=== PATIENT | female | born 2000 | race Caucasian/White ===

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

== ENCOUNTER 2021-02-16 13:40 | Outpatient (CLI) | payer OTHER, SELFPAY ==
[2021-02-16 14:24] LABS: TSH (W/Ref FT4) 1.55 uIU/mL (0.36-3.74)
== END 2021-02-16 13:41 | disposition home or self-care (01) ==
LOC: LBO 13:51
PROVIDERS: PCP Pediatrics; Visit Provider Nurse Practitioner Family
DX: F41.9 Anxiety disorder, unspecified (principal)
CPT/HCPCS: 36415; 84443

== ENCOUNTER 2021-05-01 15:56 | Outpatient (REF) | payer OTHER, SELFPAY ==
--- NOTE | 2021-05-01 15:00 | PAPFT_PTH ---
PATIENT: Jessa Polk LOC: [facility] U#:[id number] AGE/SX: 21/F ROOM: RE05/01/[address]: JERMAN Ma : 2000 BED: DIS: 05/01/2021 SPEC #: [id number] RECD: 05/01/21 17:45 STATUS: JOANIE REQ #: [id number] JACQUELINE: 05/01/21 15:[address]: Aida Santana DEPT: [facility] Cytology RECD BY: Lakeshia Adams ENTERED: 05/01/21 17:45 SP TYPE: PAPFT OTHR DR: Jenni Tse Tissues: 1 - CX/ENDOCX FOR PAP SMEARS Procedures: PAP THIN PREP/[facility]VM Screening Comments: [id number]
== END 2021-05-01 15:57 | disposition home or self-care (01) ==
LOC: LBN 15:56
PROVIDERS: PCP Nurse Practitioner Family; Visit Provider Nurse Practitioner Family
DX: Z12.4 Encounter for screening for malignant neoplasm of cervix (principal)
CPT/HCPCS: 88142

== ENCOUNTER 2021-08-10 10:49 | Outpatient (CLI) | payer OTHER, SELFPAY ==
--- NOTE | 2021-08-10 10:15 | DI.RAD_ITS ---
Exam(s) XR SHOULDER RT COMPLETE 2+V EXAM: XR SHOULDER RT COMPLETE 2+V CLINICAL HISTORY: tenderness/? mass at right trapezius R20.0 ANESTHESIA OF SKIN R20.2 TECHNIQUE: COMPARISON: No exams were available for comparison FINDINGS: Five views were obtained. The cartilaginous joint space of the glenohumeral joint appears fairly wel l maintained. No bony or soft tissue abnormality seen involving the shoulder. The requisition raises the possibility of a mass in the right trapezius region. If there is a clinic al suspicion of a mass additional evaluation with CT or MR may be considered. IMPRESSION: RADIATION DOSE DELIVERED: Total DLP
--- NOTE | 2021-08-10 10:15 | DI.RAD_ITS ---
Exam(s) XR CERVICAL SP COMP W FLEX/EXT EXAM: XR CERVICAL SP COMP W FLEX/EXT CLINICAL HISTORY: numbness/tingling right arm; tenderness/?mass trap R20.0 ANESTHESIA OF SKIN TECHNIQUE: COMPARISON: No exams were available for comparison FINDINGS: Seven views were obtained including flexion and extension lateral views. Alignment appears within no rmal limits. Flexion and extension views are unremarkable. Prevertebral soft tissues appear intact. Intervertebral disc spaces are well maintained. No bony abnormality seen. Neural foramina are well maintained on oblique views. IMPRESSION: Negative examination of the cervical spine. RADIATION DOSE DELIVERED: Total DLP
== END 2021-08-10 11:09 ==
PROVIDERS: PCP Nurse Practitioner Family; Visit Provider Pediatrics
DX: R20.0 Anesthesia of skin (principal); R20.2 Paresthesia of skin
CPT/HCPCS: 72052; 73030

== ENCOUNTER 2022-05-23 16:11 | Outpatient (REF) | payer OTHER, SELFPAY ==
--- NOTE | 2022-05-23 15:15 | PAPFT_PTH ---
PATIENT: Jessa Polk LOC: [facility] U#:[id number] AGE/SX: 22/F ROOM: RE05/23/[address]: JERMAN Ma : 2000 BED: DIS: 05/23/2022 SPEC #: [id number] RECD: 05/23/22 18:00 STATUS: JOANIE REQ #: [id number] JACQUELINE: 05/23/22 15:[address]: Aida Santana DEPT: [facility] Cytology RECD BY: Lakeshia Adams ENTERED: 05/23/22 18:00 SP TYPE: PAPFT OTHR DR: Jenni Tse Tissues: 1 - CX/ENDOCX FOR PAP SMEARS Procedures: PAP THIN PREP/UVM Screening Comments: [id number]
== END 2022-05-23 16:12 | disposition home or self-care (01) ==
LOC: LBN 16:11
PROVIDERS: PCP Nurse Practitioner Family; Visit Provider Nurse Practitioner Family
DX: Z12.4 Encounter for screening for malignant neoplasm of cervix (principal)
CPT/HCPCS: 88142

== ENCOUNTER → 2024-05-26 12:01 | Outpatient (CLI) | payer OTHER, SELFPAY ==
--- NOTE | 2024-05-26 | DI.RAD_ITS ---
Exam(s) XR HAND LT COMPLETE EXAM: XR HAND LT COMPLETE CLINICAL HISTORY: SPRAIN OF THUMB,s63.602A. TECHNIQUE: 2D digital imaging was performed of the left hand. Three views were obtained. AP, later al and oblique views were obtained. COMPARISON: CR BONE AGE from 12/09/2012 FINDINGS: BONES: No acute fracture is present. No bony destructive lesion is seen. JOINTS: No dislocation present. SOFT TISSUE: Normal. IMPRESSION: No acute fracture or dislocation is present. DATA REPOSITORY: RADIATION DOSE DELIVERED:
== END ==
PROVIDERS: Visit Provider Emergency Medicine Emergency Medical Services
DX: S63.602A Unspecified sprain of left thumb, initial encounter (principal)
CPT/HCPCS: 73130

== ENCOUNTER 2024-06-04 09:25 | Outpatient (REF) | payer OTHER, SELFPAY ==
[2024-06-07 12:10] LABS: Chlamydia Result Negative (Negative); GC Result Negative (Negative)
== END 2024-06-04 09:26 | disposition home or self-care (01) ==
LOC: LBN 09:25
PROVIDERS: Visit Provider Obstetrics & Gynecology
DX: Z11.3 Encounter for screening for infections with a predominantly sexual mode of transmission (principal)
CPT/HCPCS: 87491; 87591

== ENCOUNTER 2024-09-24 09:21 | Outpatient (REF) | payer OTHER, SELFPAY ==
--- OUTSIDE RECORDS SUMMARY | 2024-09-24 09:22 | XMS_ITS | Encounter Summary ---
Author Organization [facility] [place] [address] Care Team Providers Care Sewer Pipe Layer Helper Name Role Phone Robyn Bonilla MD Primary Care Provider [phone] Reason for Visit * Reason Comments Delayed Puberty Encounter Details Date Type Department Care Team (Latest Contact Info) Description 07/23/2013 3:00 PM EDT Office Visit [place] [id number] Jaquelin Loco APRN [facility] [place] [address] Pubertal delay (Primary Dx); Low weight, pediatric, BMI less than 5th percentile for age Discharge Disposition: Home Social History Tobacco Use Types Packs/Day Years Used Date Smoking Tobacco: Never Smokeless Tobacco: Never Alcohol Use Standard Drinks/Week Comments Not Asked 0 (1 standard drink = 0.6 oz pur e alcohol) Sex and Gender Information Value Date Recorded Sex Assigned at Not on file Gender Identity Not on file Sexual Orientation Not on file documented as of this encounter Last Filed Vital Signs Vital Sign Reading Time Taken Comments Blood Pressure 110/55 07/23/2013 2:41 PM EDT Pulse 62 07/23/2013 2:41 PM EDT Temperature - - Respiratory Rate - - Oxygen Saturation - - Inhaled Oxygen Concentration - - Weight 30.7 kg (67 lb 10.9 oz) 07/23/2013 2:41 P M EDT Height 148.1 cm (4' 10.31) 07/23/2013 2:41 PM E DT Body Mass Index 14 07/23/2013 2:41 PM EDT Body Mass Index Percentile 0.35% 07/23/2013 2:4 1 PM EDT Growth Chart: [facility] [place] (Girls, 2- 20 Years) documented in this encounter Patient Instructions * Patient Instructions* Jaquelin Loco APRN - 07/23/2013 2:58 PM EDT 1. Height today 4 ft 10-1/4 inches, increase of 1-3/4 inches. 2. Weight today 67 lbs, increase of 4 lbs. 3.. Keep push calories. 4. Return visit in six months. documented in this encounter Progress Notes * Jaquelin Loco APRN - 07/23/2013 2:46 PM EDT Reason for Visit: Follow up for pubertal delay and short stature HPI: Jessa Polk is a 13-3/12 ths, year-old, thin, school-aged girl, who is here for follow up ofabove accompanied by her mother. At her initial evaluation, short stature work up was normal and our thinking is that her low body fat is the etiology of her pubertal delay. Bone age was delayed and yielded a final height around 63.5 inches, falling well within her genetic potential. She does not have a distorted image of herself. There is also a family history of delayed puberty and likely that Jessa is following a similar pattern. Over the interim, family has been pushing high calories. They do feel she has gained weight. She isgrowing and has required an increase in clothes size. She is progressing in puberty with increase in breast tissue. Overall, general health is good. Remainder of systems as noted below. Laboratory evaluation: Ref. Range 01/18/2013 15:06 WBC Latest Range: 4.5-13.0 x10(3)/mcL 5.6 RBC Latest Range: 4.10-5.10 x10(6)/mcL 4.67 Hemoglobin Latest Range: 12.0-16.0 gm/dL 13.7 Hematocrit Latest Range: 36.0-46.0 % 38.5 MCV Latest Range: 76.0-98.0 fL 82.4 MCH Latest Range: 25.0-35.0 pg 29.3 MCHC Latest Range: 32.0-36.5 gm/dL 35.6 RDWSD Latest Range: 35.0-46.0 fL 38.9 RDWCV Latest Range: 10.9-14.4 % 13.0 Platelets Latest Range: 145-370 x10(3)/mcL 323 MPV Latest Range: 9.0-12.0 fL 10.2 Neutr Abs (ANC) Latest Range: 1.50-8.00 x10(3)/mcL 2.71 Neutrophils % Latest Range: 37.0-77.0 % 47.9 Immature Gran % Latest Range: 0.00-0.66 % 0.20 Lymphocytes % Latest Range: 20.0-50.0 % 42.3 Monocytes % Latest Range: 2.0-12.0 % 7.6 Eosinophils % Latest Range: 0.0-7.0 % 1.6 Basophils % Latest Range: 0.0-2.0 % 0.4 Yeimi Gran Abs Latest Range: 0.00-0.05 x10(3)/mcL 0.01 Lymphocytes Abs Latest Range: 1.2-5.2 x10(3)/mcL 2.4 Monocyte Abs Latest Range: 0.2-1.0 x10(3)/mcL 0.4 Eosinophils Abs Latest Range: 0.0-0.5 x10(3)/mcL 0.1 Basophils Abs Latest Range: 0.0-0.2 x10(3)/mcL 0.0 Sed Rate Latest Range: 0-20 mm/hr 3 Sodium Latest Range: 135-145 mmol/L 140 Potassium Latest Range: 3.5-5.0 mmol/L 3.8 Chloride Latest Range: 98-107 mmol/L 103 CO2 Latest Range: 22-31 mmol/L 26 Anion Gap Latest Range: 5-15 mmol/L 11 BUN Latest Range: 5-20 mg/dL 13 Creatinine Latest Range: 0.20-0.70 mg/dL 0.39 Estimated GFR Latest Range: >=60 See note Glucose Lvl Latest Range: 60-199 mg/dL 97 Calcium Latest Range: 8.5-10.5 mg/dL 9.0 Total Protein Latest Range: 5.7-8.0 gm/dL 6.9 Albumin Latest Range: 3.3-4.9 gm/dL 4.7 Total Bilirubin Latest Range: <=1.0 mg/dL 0.2 Bili, Direct Latest Range: 0.0-0.3 mg/dL 0.1 Alk Phos Latest Range: 115-610 unit/L 273 AST Latest Range: 5-30 unit/L 23 ALT Latest Range: 0-25 unit/L 19 Beta-Carotene Latest Range: 48-200 mcg/dL 154 IgA Latest Range: 58-358 mg/dL 73 TTG IgA Ab Latest Range: <=3.9 u/ml <4.0 IGF Bind Prot-3 Latest Range: 2.1-6.2 mg/L 3.2 SOMC 1 No range found 167 Bone age December 2012: Reviewed films. Bone age read as bone age 10-11 years, chronological age 12-8/12 ths years, yielding a final height around 63.5 inches, falling within 2 standard deviations ofthe mid parental height. . Past medical history: Reviewed. No other chronic medical conditions. She did have history of recurrent ear infections in child hennessy and s/p myringotomy tubes. Past surgical history: Reviewed. S/P myringotomy tubes, adenoidectomy. Past social history: Lives at home with both parents and 14-year-old brother. In 8 th grade, high honors. Dad is a decker operator at [employer]. Mom is a book keeper. Family history: Reviewed. Dad, 5 ft 10 inches. Mom 5 ft 2 inches. Family History Problem Relation Age of Onset ??? Learning Disorder Brother ??? Myocardial Infarction Maternal Grandfather ??? Myocardial Infarction Paternal Grandfather ??? Thyroid Disease Paternal Grandmother Medications: None. Allergies as of 07/23/2013 - Review Complete 07/23/2013 Allergen Reaction Noted ??? Amoxicillin 06/19/2011 Immunizations: Up-to-date. Review of Systems: General: Overall, good general health. EENT: S/P myringotomy and adenoidectomy in childhood. No current issues. Respiratory: No complaints of respiratory infections. No difficulty breathing. Cardiac: No history of heart murmurs. No complaints of palpitations. Neuro: No history of seizures. No history of headaches, meningitis, or loss of consciousness. Thyroid: Good energy. No cold intolerance. GI: No history of constipation or diarrhea. Food/Fluid: Denies excessive thirst or urination. : No history of frequent urination, urinary tract infections. Muscle/Bone: No complaints of joint or muscle pain. Skin: No rashes. Sleep: No problems falling or staying asleep. Physical Exam: Jessa is a 13-3/12 ths, year-old, pleasant, school-aged girl. 07/23/2013 2:41 PM BP 110/55 Pulse 62 Resp Temp Temp src SpO2 Weight 30.7 kg (67 lb 10.9 oz) Height 148.1 cm (4' 10.31) Head Cir Peak Flow Pain Score 1 Excl. in GC? Age Percentiles Weight 0% Height 7% BMI: 0% Other Vitals BMI: 14.00 kg/m2 BSA: 1.12 m2 plastics nurse Status: Premenarcheal plastics nurse Status Reviewed: 07/23/2013 Normal Abnormal Comments Tone/Appearance Thin Skin X Head/Neck/thyroid X Eyes X ENT X Teeth X Lungs X Heart X Abdomen X Genitalia/breasts Rafael Stage 3 breast development. Rafael Stage 2 pubic hair Musculoskeletal X Active problems: 1. Pubertal delay. 2. Low BMI. 3. Concern for short stature. Assessment: Jessa is progressing in puberty with more breast tissue and now into her pubertal growth spurt. Today's height 148.1 cm, increase of 4.2 cm in six months, now at the 7 th percentile for height. She also had a nice interval weight gain of 4 lbs with weight today 67 lbs. Her short staturework up at the initial visit was normal. Bone age delayed and gives a final height prediction around 63.5 inches, falling within 2 standard deviations of the mid parental height. Will continue to follow until she reaches menarche. Family in agreement with plan. Plan: 1. Continue to push high calorie, low volume foods. 2. Return visit in 6 months. Copy: MD ROBYN Ordaz MD Katalina Martínez [facility] [place] [address] . documented in this encounter Plan of Treatment Not on file documented as of this encounter Visit Diagnoses Diagnosis Pubertal delay- Primary Delay in sexual development and puberty, not elsewhere classified Low weight, pediatric, BMI less than 5th percentile for age Body Mass Index, pediatric, less than 5th percentile for age documented in this encounter Care Teams Sewer Pipe Layer Helper Relationship Specialty Start Date End Date Robyn Bonilla MD [address] [place] [address] PCP - General 06/19/11 04/02/21 documented as of this encounter
--- OUTSIDE RECORDS SUMMARY | 2024-09-24 09:22 | XMS_ITS | Encounter Summary ---
Author Organization [facility] Address [facility] [place] [address] Care Team Providers Care Balancer Scale Name Role Phone Jenni Tse HARSHA Primary Care Provider [phone] Reason for Visit * Reason Comments Allergy Testing Encounter Details Date Type Department Care Team (Late st Contact Info) Description 08/13/2021 9:00 AM EDT [place] [address] Olimpia Mendez PA [facility] [place] [address] Adverse effect of penicillin, initial encounter; Drug-induced skin rash Social History Tobacco Use Types Packs/Day Years [...] Sign Reading Time Taken Comments Blood Pressure 120/87 08/13/2021 11:47 AM EDT Pulse 66 08/13/2021 11:47 AM EDT Temperature - - Respiratory Rate - - Oxygen Saturation 100% 08/13/2021 11:47 AM EDT Inhaled Oxygen Concentration - - Weight 47.4 kg (104 lb 9.6 oz) 08/13/2021 8:58 A M EDT Height - - Body Mass Index - - documented in this encounter Patient Instructions * Patient Instructions* Olimpia Mendez PA - 08/13/2021 9:00 AM EDT You had negative skin testing to penicillin and tolerated a graded oral dose challenge to amoxicillin 500 mg today. You may take amoxicillin/penicillin in the future if needed. I have removed amoxicillin from your allergy list. Delayed reactions may occur to antibiotics. If you develops a rash or other symptoms later today orwhile taking amoxicillin for a longer course, please seek evaluation. documented in this encounter Progress Notes * Olimpia Mendez PA - 08/13/2021 9:00 AM EDT Images from the original note were not included. [facility] Section of Allergy and Clinical Immunology Primary Care Provider: Jenni Tse APRN Patient Age: 21 y.o. Patient : 2000 Historian: Patient Subjective: Chief Complaint Patient presents with ??? 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 She was last seen on 04/17/21. At that visit, she reported that she developed facial hives and her throat felt weird approximately 1 week after she received her first Moderna vaccine in January. She wastreated with epinephrine which did not resolve her symptoms. Since then, she reported developing hives during exams or when anxious/stressed. Dr. Lizeth Meek recommended she receive her 2nd vaccine per routine protocol, as her history was more consistent with intermittent hives, rather than an adverse reaction to her vaccine. She reports that she got her second Moderna COVID-19 vaccine after her last visit on 04/17. She reported a history of a full body rash after taking amoxicillin when she was 3 years old. Past Medical History: Diagnosis Date ??? Low weight, pediatric, BMI less than 5th percentile for age ??? Pubertal delay ??? Short stature No past surgical history on file. Outpatient Medications Marked as Taking for the 08/13/21 encounter (Office Visit) with Olimpia Mendez PA Medication Sig Dispense Refill ??? Sprintec, 28, 0.25-35 mg-mcg Tablet TAKE 1 TABLET BY MOUTH ONCE DAILY Current Facility-Administered Medications for the 08/13/21 encounter (Office Visit) with Olimpia Mendez PA Medication Dose Route Frequency Provider Last Rate Last Admin ??? [COMPLETED] benzylpenicilloyl polylysine (Pre-pen) injection 0.02 mL 0.02 mL Intradermal Once Olimpia Mendez PA 0.02 mL at 08/13/21 0916 ??? [COMPLETED] amoxicillin (Amoxil) capsule 500 mg 500 mg Oral Once Olimpia Mendez PA 500 mg at 08/13/21 1009 No Known Allergies Family History Problem Relation Age of Onset ??? Learning Disorder Brother ??? Myocardial Infarction Maternal Grandfather ??? Myocardial Infarction Paternal Grandfather ??? Thyroid Disease Paternal Grandmother Social History Tobacco Use ??? Smoking status: Never Smoker ??? Smokeless tobacco: Never Used Vaping Use ??? Vaping Use: Never used Substance Use Topics ??? Alcohol use: Not on file ??? Drug use: Not on file Objective: BP 120/87 (BP Location (NBP): Left arm, Patient Position: Sitting) Pulse 66 Wt 47.4 kg (104 lb 9.6 oz) SpO2 100% No flowsheet data found. Wt Readings from Last 3 Encounters: 08/13/21 47.4 kg (104 lb 9.6 oz) 01/26/14 (!) 33.1 kg (73 lb) (<1 %)* 07/23/13 (!) 30.7 kg (67 lb 10.9 oz) (<1 %)* * Growth percentiles are based on CDC (Girls, 2-20 Years) data. Physical Exam Vitals reviewed. Constitutional: Appearance: Normal appearance. HENT: Head: Normocephalic. Nose: Nose normal. Eyes: Conjunctiva/sclera: Conjunctivae normal. Pulmonary: Effort: Pulmonary effort is normal. Skin: General: Skin is warm. Findings: No rash. Neurological: General: No focal deficit present. Mental Status: She is alert. Psychiatric: Mood and Affect: Mood normal. Procedures Performed: Skin testing to penicillin and pre-pen negative. See scanned skin testing sheet. Graded oral dose challenge to amoxicillin 500 m mg given at 1009, no reaction. 450 mg given at 1040, no reaction. Challenge tolerated. Post-challenge counseling completed. 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 Skin testing today was negative to penicillin. She subsequently tolerated a graded oral dose challenge to amoxicillin 500 mg. She may take amoxicillin/penicillin in the future if indicated. Amoxicillin has been removed from her allergy list. Delayed reactions may occur to antibiotics. She was counseled to seek evaluation if she develops a rash or other symptoms later today or while taking amoxicillin for a longer course. All questions were answered, and patient expressed understanding of the plan. Return if symptoms worsen or fail to improve. ROLANDO Jim, PA-C Section of [place]ergy [place] [address] * Ruth Soares RN - 08/13/2021 9:00 AM EDT Patient in clinic for skin testing. Prior to skin test assessment lungs clear to ausculation, HR WNL, no rash, hives noted. Patient denies use of antihistamine in last 7 days. Procedure explained to patient. No signs and symptoms of allergic reaction present. At 09:15 SPT administered. Post 15 minutes observation. Results read by provider. Proceeded to nextdose At 09:40 IDT administered. Post 15 minutes observation. Results read by provider. Post IDT testing. Vss, lungs clear to ausculation, oral pharynex WNL. No signs and symptoms of allergic reaction present. Waiting for provider. Patient in Clinic for Oral Drug Challenge to Amoxicillin 500 mg . Oral Drug challenge procedure reviewed with patient. Patient verbalized understanding. At 10:09 Amoxicillin 50 mg given, post 30 mins observation no report or symptoms of reaction. Proceeded to next dose. At 10:40, Amoxicillin 450 mg given, post 60 mins observation no report or symptoms of reaction. time: 11:45. VSS, patient waiting for provider. Patient ambulated from appointment at baseline, no signs or symptoms of reaction. documented in this encounter Plan of Treatment Not on file documented as of this encounter Procedures Procedure Name Priority Date/Time Associated Diagnosis Comments ALLERGY SCAN 08/13/2021 12:00 AM EDT documented in this encounter Results * SCAN DOC: ALLERGY (08/13/2021 12:00 AM EDT) Unknown MEDIA MGR SCAN EXT O RDR/RSLT documented in this encounter Visit Diagnoses Diagnosis Adverse effect of penicillin, initial encounter Drug-induced skin rash Toxic erythema documented in this encounter Administered Medications Inactive Administered Medications - up to 3 most recent administrations Medication Order MAR Action Action Date Dose Rate Site amoxicillin (Amoxil) capsule 500 mg 500 mg, Oral, ONCE, 1 dose, On Fri08/13/21 at 1030, Routine, Indication for (Active or Suspected): Other (See comment) / supervised challenge Given 08/13/2021 10:09 AM EDT 500 mg benzylpenicilloyl polylysine (Pre-pen) injection 0.02 mL 0.02 mL, Intradermal, ONCE, 1 dose, On Fri08/13/21 at 1030, Pre-pen must be administered by a credentialed provider. A filter needle is required to withdraw dose from ampule. , Routine Given 08/13/2021 9:16 AM EDT 0.02 mLs 10- Arm Upper (Right) documented in this encounter Care Teams Balancer Scale Relationship Specialty Start Date End Date Jenni Tse, NUT CHOPPER [address] [place] [address] PCP - General Pediatrics 04/03/21 documented as of this encounter
--- OUTSIDE RECORDS SUMMARY | 2024-09-24 09:22 | XMS_ITS | Encounter Summary ---
Author Organization [facility] [place] [address] Care Team Providers Care Box Builder Name Role Phone Nato Bonilla MD Primary Care Provider [phone] Reason for Visit * Reason Comments Verrucous Vulgaris Encounter Details Date Type Department Care Team (Late st Contact Info) Description 06/19/2011 4:45 PM EDT Office Visit Dermatology [address] [facility] [address] [place], [place] [address] Buddy Barber MD [address] [place] [address] RD, [place] [address] Verruca vulgaris (Primary Dx) Social History Tobacco Use Types Packs/Day Years Used Date Smoking Tobacco: Never Alcohol Use Standard Drinks/Week Comments Not Asked 0 (1 standard drink = 0.6 oz pur e alcohol) Sex and Gender Information Value Date Recorded Sex Assigned at Not on file Gender Identity Not on file Sexual Orientation Not on file documented as of this encounter Progress Notes * Buddy Babrer MD - 06/19/2011 5:16 PM EDT Problem: Left shinto lesion. Jessa follows up after last being seen in July of 2008. At that time I treated a flat wart on the left shinto and she had good resolution for about a year. Unfortunately then it came back and they have been slowly multiplying in number since then. The patient is here today with her father Kirk. Physical examination today reveals a cluster of about 7 or 8 flat warts in the left shinto area. She has none elsewhere. Examination of the hands, feet, arms, legs and the rest of the face is unremarkable. Assessment & Plan: Flat warts, left shinto. a. After obtaining patient consent, the site were treated with LN2 x2. b. Patient tolerated well. c. RTC in 2-3 weeks for repeat check may cancel if doing well. Cc: Nato Bonilla MD documented in this encounter Plan of Treatment Not on file documented as of this encounter Visit Diagnoses Diagnosis Verruca vulgaris- Primary Viral warts, unspecified documented in this encounter Care Teams Box Builder Relationship Specialty Start Date End Date Nato Bonilla MD [address] [place] [address] PCP - General 06/19/11 04/02/21 documented as of this encounter
--- OUTSIDE RECORDS SUMMARY | 2024-09-24 09:22 | XMS_ITS | Encounter Summary ---
Author Organization [facility] [place] [address] Care Team Providers Care Vehicle Operator Name Role Phone Nato Bonilla MD Primary Care Provider Encounter Details Date Type Department Care Team (Late st Contact Info) Description 12/09/2012 Orders Only [place] [address] Jaquelin Loco APRN [facility] DR PEDIATRIC [place] [address] Social History Tobacco Use Types Packs/Day Years Used Date Smoking Tobacco: Never Alcohol Use Standard Drinks/Week Comments Not Asked 0 (1 standard drink = 0.6 oz pur e alcohol) Sex and Gender Information Value Date Recorded Sex Assigned at Not on file Gender Identity Not on file Sexual Orientation Not on file documented as of this encounter Plan of Treatment Not on file documented as of this encounter Procedures Procedure Name Priority Date/Time Associated Diagnosis Comments FILM LIBRARY STORAGE ONLY DX HAND Routine 12/09/2012 5:02 PM EST documented in this encounter Results * Film Library- Storage only DX Hand (12/09/2012 5:02 PM EST) 12/09/2012 5:02 PM EST Narrative [facility] - 06/22/2014 11:03 PM EDT This is a non-reportable exam. Procedure Note Jake Pedroza - 06/22/2014 This is a non-reportable exam. Jaquelin Loco APRN [facility] FILM LIBRARY ORD ERABLES [facility] [address] [facility] [place] [address] documented in this encounter Visit Diagnoses Not on filedocumented in this encounter Care Teams Vehicle Operator Relationship Specialty Start Date End Date Nato Bonilla MD [address] [place] [address] PCP - General 06/19/11 04/02/21 documented as of this encounter
--- OUTSIDE RECORDS SUMMARY | 2024-09-24 09:22 | XMS_ITS | Encounter Summary ---
Author Organization [facility] Address [facility] [place] [address] Care Team Providers Care Plant Electrical Engineer Name Role Phone Jenni Tse WELLNESS NURSE Primary Care Provider [phone] Reason for Visit * Reason Comments Establish Care * Consultation (Urgent) - Closed Specialty Diagnoses / Procedures Referred By Contac t Referred To Contact Allergy Diagnoses Other allergy, initial encounter ALLERGIC REACTION TO COVID-19 VACCINE Jenni Tse, WELLNESS NURSE [address] [place] [address] [place] [address] [facility] [address] [place] [id number] Referral ID Status Reason Start Date Expiration Date V isits Requested Visits Authorized [id number] Closed Consult, Test & Treat Connection [facility] PCP Updated and/or Approved 04/03/2021 04/03/2022 6 6 Encounter Details Date Type Department Care Team (Late st Contact Info) Description 04/17/2021 1:00 PM EDT [place] [phone] Maria G Preciado MD [facility] [place] [address] Urticaria; Adverse effect of penicillin, initial encounter; Drug-induced [...] Sign Reading Time Taken Comments Blood Pressure 136/87 04/17/2021 1:16 PM EDT Pulse 89 04/17/2021 1:16 PM EDT Temperature - - Respiratory Rate - - Oxygen Saturation 99% 04/17/2021 1:16 PM EDT Inhaled Oxygen Concentration - - Weight - - Height - - Body Mass Index - - documented in this encounter Patient Instructions * Patient Instructions* Maria G Preciado MD - 04/17/2021 1:00 PM EDT I have evaluated Jessa Polk and she can receive the 2nd Moderna COVID vaccine per routine protocol. Stop cetirizine 7 days prior to skin testing documented in this encounter Progress Notes * Maria G Preciado MD - 04/17/2021 1:00 PM EDT Images from the original note were not included. [facility] Section of Allergy and Clinical Immunology Date of Service: 04/17/2021 Primary Care Provider: Jenni Tse APRN Patient Age: 21 y.o. 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 She reports that on January 10, 2021, she had her first Moderna injection. She had no symptoms except sore arm after injection. About 1 week later, she developed hives on her face. She felt like her throat felt weird so she went to the ED in [place]. She was given epinephrine, but her symptoms did not resolve. She recalled that she stayed in the ED for many hours. Since then, she has noticed that she breaks out during exams or when she may feel anxious or stressed. When she was 3 years old, she developed a full body rash after taking amoxicillin. Past Medical History: Diagnosis Date ??? Low weight, pediatric, BMI less than 5th percentile for age ??? Pubertal delay ??? Short stature Outpatient Medications Marked as Taking for the 04/17/21 encounter (Office Visit) with Maria G Preciado MD Medication Sig Dispense Refill ??? Sprintec, 28, 0.25-35 mg-mcg Tablet TAKE 1 TABLET BY MOUTH ONCE DAILY Allergies Allergen Reactions ??? Amoxicillin Family History Problem Relation Age of Onset ??? Learning Disorder Brother ??? Myocardial Infarction Maternal Grandfather ??? Myocardial Infarction Paternal Grandfather ??? Thyroid Disease Paternal Grandmother Social History Tobacco Use ??? Smoking status: Never Smoker ??? Smokeless tobacco: Never Used Substance Use Topics ??? Alcohol use: Not on file ??? Drug use: Not on file She is working as a rehabilitation specialist Status: Single. Review of Systems: 10 point review of systems reviewed and negative except as above. Environmental History: Pets in the home: dogs (1). Objective: BP 136/87 Pulse 89 SpO2 99% No flowsheet data found. Wt Readings from Last 3 Encounters: 01/26/14 (!) 33.1 kg (73 lb) (<1 %)* 07/23/13 (!) 30.7 kg (67 lb 10.9 oz) (<1 %)* 01/18/13 (!) 28.6 kg (63 lb) (<1 %)* * Growth percentiles are based on [facility] (Girls, 2-20 Years) data. Gen: awake, alert, no acute distress Head: normocephalic, atraumatic EYES: Conjunctiva not injected or icteric. No discharge. No eyelid edema. ENT: Tympanic membranes clear, no lesions, erythema, or drainage. Normal external ear canals. Nasalpassages show normal mucosa, edematous turbinates bilaterally, no lesions. OP mucosa well hydrated,clear without erythema. No lesions or exudates. No visible OP edema. NECK: supple, symmetric, no masses, trachea midline LYMPH: no submandibular, cervical, or supraclavicular LAD CVS: RRR LUNGS: CTAB, no wheezing or crackles breathing unlabored ABD: non-distended, bowel sounds present SKIN: no rashes, normal color, no mottling EXTREMITIES: warm and well-perfused, normal bulk, symmetric ROM. NEURO: EOMI, no dysarthria PSYCH: normal grooming, appropriate mood and affect, normal volume/quantity/tone of speech, normal thought process and content Review of Medical Records: I reviewed [facility] records. I do not have ED records carline. Assessment and Plan: Jessa Polk is a 21 y.o. female student is seen for a question of delayed reaction to Moderna vaccine. She has since figured out that she has intermittent hives. She had developed hives about 1 week after her COVID-19 vaccine. I do not believe it is related. She may receive her 2nd Moderna vaccine per routine protocol. For her remote amoxicillin allergy labeled at age 3, I recommend she return for penicillin evaluation. Stop cetirizine 7 days prior to skin testing. Risks and benefits of skin testing were discussed in detail with the patient. She requested skin testing to the allergens as planned. Consent was obtained today. All questions were answered, and patient expressed understanding of the plan. Thank you for the opportunity to participate in the care of your patient. Ongoing follow-up with the patient's primary care physician is recommended and encouraged. If I can provide any further assistance, please do not hesitate to contact me. Next visit (studies planned): penicillin skin testing Maria G Meek MD [employer], [place]ergy [place] [address] [email or web address] documented in this encounter Plan of Treatment Not on file documented as of this encounter Visit Diagnoses Diagnosis Urticaria Urticaria, unspecified Adverse effect of penicillin, initial encounter Drug-induced skin rash Toxic erythema documented in this encounter Care Teams Plant Electrical Engineer Relationship Specialty Start Date End Date Jenni Tse APRN [address] [facility] [place] [address] PCP - General Pediatrics 04/03/21 documented as of this encounter
--- OUTSIDE RECORDS SUMMARY | 2024-09-24 09:22 | XMS_ITS | Encounter Summary ---
Author Organization [facility] [place] [address] Care Team Providers Care Federal Aid Coordinator Name Role Phone Robyn Baires MD Primary Care Provider [phone] Reason for Visit * Reason Comments Delayed Puberty Encounter Details Date Type Department Care Team (Latest Contact Info) Description 01/26/2014 4:30 PM EDT Office Visit [place] [phone] Jaquelin Loco APRN [facility] [place] [address] Pubertal delay (Primary Dx); Low weight, pediatric, [...] Sign Reading Time Taken Comments Blood Pressure 118/61 01/26/2014 4:27 PM EDT Pulse 62 01/26/2014 4:27 PM EDT Temperature - - Respiratory Rate - - Oxygen Saturation - - Inhaled Oxygen Concentration - - Weight 33.1 kg (73 lb) 01/26/2014 4:27 PM EDT Height 151.6 cm (4' 11.69) 01/26/2014 4:27 PM E DT Body Mass Index 14.41 01/26/2014 4:27 PM EDT Body Mass Index Percentile 0.54% 01/26/2014 4:2 7 PM EDT Growth Chart: CDC (Girls, 2- 20 Years) documented in this encounter Patient Instructions * Patient Instructions* Jaquelin Loco APRN - 01/26/2014 4:34 PM EDT 1. Height today 4 ft 11-1/2 inches, 11 th percentile. 2. Weight today 73 lbs, increase of 6 lbs, 1 st percentile. 3. Discharge from endocrine clinic. Return if no menses by age 16-years. documented in this encounter Progress Notes * Jaquelin Loco APRN - 01/26/2014 4:27 PM EDT Reason for Visit: Follow up for pubertal delay and short stature HPI: Jessa Polk is a 13-9/12 ths, year-old, thin, school-aged girl, who is [...] following a similar pattern. Over the interim, Jessa is more conscious about eating more high calorie food. She is gaining weight. She is growing and has required an increase in clothes size. She is progressing in puberty with increase in breast tissue. No menses yet. Overall, general health is good. Remainder of [...] history of recurrent ear infections in child [place] and s/p myringotomy tubes. Past surgical history: Reviewed. S/P myringotomy tubes, adenoidectomy. Past social history: Lives at home with both parents and 14-year-old brother. In 8 th grade, high honors. Dad is a consultant rn at [employer]. Mom is a book keeper. Family history: Reviewed. Dad, 5 ft 10 inches. Mom 5 ft 2 inches. Family History Problem Relation Age of Onset ??? Learning Disorder Brother ??? Myocardial Infarction Maternal Grandfather ??? Myocardial Infarction Paternal Grandfather ??? Thyroid Disease Paternal Grandmother Medications: None. Allergies as of 01/26/2014 - Review Complete 07/23/2013 Allergen Reaction Noted [...] staying asleep. Physical Exam: Jessa is a 13-9/12 ths, year-old, pleasant, school-aged girl. 01/26/2014 4:27 PM BP 118/61 Pulse 62 Resp Temp Temp src SpO2 Weight 33.113 kg (73 lb) Height 151.6 cm (4' 11.68) Head Cir Peak Flow Pain Score 0 - No pain Excl. in GC? Age Percentiles Weight 1% Height 11% BMI: 1% Other Vitals BMI: 14.41 kg/m2 BSA: 1.18 m2 conservation science teacher Status: Premenarcheal conservation science teacher Status Reviewed: 07/23/2013 Normal Abnormal Comments Tone/Appearance Thin Skin X Head/Neck/thyroid X Eyes X ENT X Teeth X Lungs X Heart X Abdomen X Genitalia/breasts Rafael Stage 3 breast development, more than prior visit. Musculoskeletal X Active problems: 1. Pubertal delay. 2. Low BMI. 3. Concern for short stature. Assessment: Jessa is progressing in puberty with more breast tissue and now into her pubertal growth spurt. Today's height 151.6 cm, increase of 3.5 cm in six months, now at the 11 th percentile for height. She also had a nice interval weight gain of 6 lbs with weight today 73 lbs, 1 st percentile.Her short stature work up at the initial visit was normal. Bone age delayed and gives a final height prediction around 63.5 inches, falling within 2 standard deviations of the mid parental height. Since she is having normal, interval growth velocity and progression in puberty, will discharge back to the PCP with the understanding that she will return if she does not reach menarche by age 16-years. Plan: 1. Continue to push high calorie, low volume foods. Copy: ROBYN BAIRES MD [address] [facility] [place] [address] . documented in this encounter Plan of Treatment Not on file documented as of this encounter Visit Diagnoses Diagnosis Pubertal delay- Primary Delay in sexual development and puberty, not elsewhere classified Low weight, pediatric, BMI less than 5th percentile for age Body Mass Index, pediatric, less than 5th percentile for age documented in this encounter Care Teams Federal Aid Coordinator Relationship Specialty Start Date End Date Robyn Baires MD [address] [place] [address] PCP - General 06/19/11 04/02/21 documented as of this encounter
--- OUTSIDE RECORDS SUMMARY | 2024-09-24 09:22 | XMS_ITS | Clinical Summary ---
Author Organization [facility] Address [facility] [place] [address] Care Team Providers Care Court Administrator Name Role Phone DedrickJenni Kimberly MCLEOD Primary Care Provider [phone] Allergies No known active allergies Medications Medication Sig Dispensed Refills Start Date End Date Status Sprintec, 28, 0.25-35 mg-mcg Tablet TAKE 1 TABLET BY MOUTH ONCE DAILY 02/06/2021 Active Active Problems Problem Noted Date Diagnosed Date Pubertal delay 01/18/2013 Low weight, pediatric, BMI less than 5th percent ile for age 0301/18/2013 Short stature 01/18/2013 Family History Medical History Relation Comments Learning Disorder Brother 2 Myocardial Infarction Maternal Grandfather Myocardial Infarction Paternal Grandfather Thyroid Disease Paternal Grandmother Relation Status Comments Brother 1 Alive Brother 2 Father Alive Maternal Grandfather Alive Maternal Grandmother Alive Mother Alive Paternal Grandfather Alive Paternal Grandmother Alive Social History Tobacco Use Types Packs/Day Years Used Date Smoking Tobacco: Never Smokeless Tobacco: Never Alcohol Use Standard Drinks/Week Comments Not Asked 0 (1 standard drink = 0.6 oz pur e alcohol) Sex and Gender Information Value Date Recorded Sex Assigned at Not on file Gender Identity Not on file Sexual Orientation Not on file Last Filed Vital Signs Vital Sign Reading Time Taken Comments Blood Pressure 120/87 08/13/2021 11:47 AM EDT Pulse 66 08/13/2021 11:47 AM EDT Temperature - - Respiratory Rate - - Oxygen Saturation 100% 08/13/2021 11:47 AM EDT Inhaled Oxygen Concentration - - Weight 47.4 kg (104 lb 9.6 oz) 08/13/2021 8:58 A M EDT Height 151.6 cm (4' 11.69) 01/26/2014 4:27 PM E DT Body Mass Index - - Plan of Treatment Health Maintenance Due Date Last Done Comments Chlamydia Screening 2015 HPV vaccine (1 - 3-dose series) 2015 HIV screen 2018 Hepatitis C Screening 2018 Hepatitis B vaccine (0-59 yrs) (1) 2019 Tetanus/Diphtheria/Pertussis Vaccines (1 - Tdap) 04/12 PAP Smear 2021 Covid-19 Vaccine (1 - 2023- season) 2024 Influenza (Flu) vaccine (1 o f 1 - Influenza standard series) 07/04/[address] Relationship Specialty Start Date End Date Jenni Tse APRN [address] [place] [address] PCP - General Pediatrics 04/03/21
--- OUTSIDE RECORDS SUMMARY | 2024-09-24 09:22 | XMS_ITS | Encounter Summary ---
Author Organization [facility] [place] [address] Care Team Providers Care Sheet Taker Name Role Phone Nato Bonilla MD Primary Care Provider [phone] Reason for Visit * Reason Comments Delayed Puberty Encounter Details Date Type Department Care Team (Latest Contact Info) Description 01/18/2013 2:00 PM EDT Office Visit [place] [id number] Jaquelin Loco APRN [facility] [place] [address] Short stature (Primary Dx); Poor weight gain (0-17); Pubertal delay; Anesthesia Discharge Disposition: Home Social History Tobacco Use [...] Sign Reading Time Taken Comments Blood Pressure 123/67 01/18/2013 1:35 PM EDT Pulse 74 01/18/2013 1:35 PM EDT Temperature - - Respiratory Rate - - Oxygen Saturation - - Inhaled Oxygen Concentration - - Weight 28.6 kg (63 lb) 01/18/2013 1:35 PM EDT Height 143.9 cm (4' 8.65) 01/18/2013 1:35 PM ED T Body Mass Index 13.8 01/18/2013 1:35 PM EDT Body Mass Index Percentile 0.37% 01/18/2013 1:3 5 PM EDT Growth Chart: CDC (Girls, 2- 20 Years) documented in this encounter Patient Instructions * Patient Instructions* Jaquelin Loco APRN - 01/18/2013 2:08 PM EDT 1. Height today 4 ft 8-3/4 inches. 2. Weight today 63 lbs. 3. Push high calorie foods, ie nuts, raisins, craisins, dried fruit, trail mix. See calorie boosterhand out. 4. Switch to whole milk. 5. Eat at least three meals and three snacks daily. 6. Labs today. I will call you with those results by the end of the week. 7. Return visit in 6 months for growth velocity and weight check. documented in this encounter Progress Notes * Jaquelin Loco APRN - 01/25/2013 9:24 AM EDTQuick Note: Normal labs. Message left on home answering machine. * Jaquelin Loco APRN - 01/18/2013 1:42 PM EDT Reason for Visit: Initial consult for pubertal delay and short stature HPI: Jessa Polk is a 12-9/12 ths, year-old, previously healthy, school-aged girl, who is being seen at the request of Dr. Haider Aguirre, for further evaluation of above. Accompanied by dad whoprovides the past medical history. Family concerned about short stature and delayed puberty. Want to make sure there is no underlying etiology causing her small size. She eats a good amount of food, tends to make very healthy dietary choices. She is very active. Overall, general health is good. There is no family history of celiac disease. Paternal grandmother has thyroid disease. There is a 14-y/o brother who followed a similar growth pattern and who is now just entering puberty. There is no family history of short stature. Dadis 5 ft 10 inches. Mom is 5 ft 2 inches. She did have a bone age done through PCP office which was delayed. PCP growth charts show that she has been consistently tracking below but parallel to the normal curve for weight from age 11-1/2 years to present. Height was at the 10 th percentile at age 11-1/2 years, seems to have trailed off and recently between the 3 rd and 10 th percentiles. I do not have any earlier charts. Remainder of systems review as noted below. Laboratory evaluation through PCP: Will obtain today. Bone age December 2012: Reviewed films. Bone age read as bone age 10-11 years, chronological age 12-8/12 ths years. Past medical history: Reviewed. No other chronic medical conditions. She did have history of recurrent ear infections in child hennessy and s/p myringotomy tubes. Past surgical history: Reviewed. S/P myringotomy tubes, adenoidectomy. Past social history: Lives at home with both parents and 14-year-old brother. In 7 th grade, high honors. Dad is a apprentice lineman third step at [employer]. Mom is a book keeper. Family history: Reviewed. Dad, 5 ft 10 inches. Mom 5 ft 2 inches. Family History Problem Relation Age of Onset ??? Learning Disorder Brother ??? Myocardial Infarction Maternal Grandfather ??? Myocardial Infarction Paternal Grandfather ??? Thyroid Disease Paternal Grandmother Medications: None. Allergies as of 01/18/2013 - Review Complete 01/18/2013 Allergen Reaction Noted ??? Amoxicillin 06/19/2011 Immunizations: [...] staying asleep. Physical Exam: Jessa is a 12-9/12 ths, year-old, pleasant, school-aged girl. 01/18/2013 1:35 PM BP 123/67 Pulse 74 Resp Temp Temp src SpO2 Weight 28.577 kg (63 lb) Height 143.9 cm (4' 8.65) Head Cir Peak Flow Pain Score 0 - No pain Excl. in GC? Age Percentiles Weight 0% Height 4% BMI: 0% Other Vitals BMI: 13.80 kg/m2 BSA: 1.07 m2 scratcher Status: Premenarcheal scratcher Status Reviewed: Never reviewed Normal Abnormal Comments Tone/Appearance Very thin, appears younger than stated age. Skin X Head/Neck/thyroid X Eyes X ENT X Teeth X Lungs X Heart X Abdomen X Genitalia/breasts Early Rafael Stage 3 breast development. No pubic hair Musculoskeletal X Active problems: 1. Pubertal delay. 2. Low BMI. 3. Concern for short stature. Assessment: Jessa most definitely has pubertal delay as does her 14-y/o brother who has just started puberty. He also had a similar build and growth pattern as Jessa. If I use today's height of 143.9cm and recent bone age of 10-11 years, then Jessa's final height is predicted to be around 63 inches. This falls within 2 SD's of the mid parental of 63.5 inches. I did caution the family that the bon e age is not an exact measurement and assumes a normal growth velocity. We did discuss the need foradequate weight gain to ensure normal growth and a normal pubertal spurt. We discussed ways to add calories and patient hand out also given. She is very thin with BMI of only 13. She does not appear to have a distorted image of herself and would welcome gaining an additional 10 lbs. She has not hadany labs done to date, and will go ahead and obtain screening evaluation as noted below to rule outunderlying endocrinopathy that could account for her small size. Family in agreement with plan. It will be important to see how Jessa grows and gains weight over this next interval. Plan: 1. Push high calorie, low volume foods, ie nuts, raisins, craisins, dried fruit, trail mix. See calorie booster hand out. 2. Switch to whole milk. 3. Eat at least three meals and three snacks daily. 4. Obtain TSH, IGF-1, IGFBP-3, CBC, CMP, TTG, IgA, ESR, and carotene today. 5. Return visit in 6 months for growth velocity and weight check. Patient seen and examined in collaboration with Dr. Braxton Wei Copy: MD Chad Ordaz, [place] [id number] . documented in this encounter Plan of Treatment Not on file documented as of this encounter Procedures Procedure Name Priority Date/Time Associated Diagnosis Comments INSULIN LIKE GF-1 Routine 01/18/2013 3:0 6 PM EDT Short stature Poor weight gain (0-17) DIFFERENTIAL, AUTOMATED Routine 01/18/2013 3:06 PM EDT IGF BINDING PROTEIN-3 Routine 01/18/2013 3:06 PM EDT Short stature Poor weight gain (0-17) TISSUE TRANSGLUTAMINASE, IGA Routine 01/18/2013 3:06 PM EDT Short stature Poor weight gain (0-17) CAROTENE Routine 01/18/2013 3:06 PM EDT Poor weight gain (0-17) SEDIMENTATION RATE Routine 01/18/2013 3: 06 PM EDT Short stature Poor weight gain (0-17) CBC (WITH DIFF) Routine 01/18/2013 3:06 PM EDT Short stature Poor weight gain (0-17) IGA Routine 01/18/2013 3:06 PM EDT Short stature Poor weight gain (0-17) COMPREHENSIVE METABOLIC PANEL Routine 01/18/2013 3:06 PM EDT Short stature Poor weight gain (0-17) documented in this encounter Results * Differential, Automated (01/18/2013 3:06 PM EDT) Neutrophil % 47.9 37.0 - 77.0 % [facility] Neutrophil Absolute 2.71 1.50 - 8.00 x10(3)/mcL [facility] Lymph % 42.3 20.0 - 50.0 % [facility] Lymphocytes Abs 2.4 1.2 - 5.2 x10(3)/mcL [facility] Monocyte % 7.6 2.0 - 12.0 % [facility] Monocyte Abs 0.4 0.2 - 1.0 x10(3)/mcL [facility] Eos % 1.6 0.0 - 7.0 % [facility] Eosinophils Abs 0.1 0.0 - 0.5 x10(3)/mcL [facility] Basophil % 0.4 0.0 - 2.0 % [facility] Baso Absolute 0.0 0.0 - 0.2 x10(3)/mcL [facility] Immature Gran % 0.20 0.00 - 0.66 % [facility] Comment: Immature granulocytes(IG's)percentage and absolute count will include metamyelocytes, myelocytes, and promyelocytes. Blood smears from CBCs yielding IG's will be scanned manually for concordance. If this scan disagrees with the automated IG or if promyelocytes are noted, a manual differential will be performed. Immature Gran Absolute 0.01 0.00 - 0.05 x10(3)/mcL [facility] Blood specimen (specimen) 01/18/2013 3:06 PM EDT 01/18/2013 3:12 PM EDT Braxton Wei MD HEMATOLOGY ORDERABLE S [facility] * Carotene (01/18/2013 3:06 PM EDT) Beta-Carotene 154 48 - 200 mcg/dL [facility] Comment: Test Performed by: [address] [address] [employer]aceutical Sales: Jose Thomas III, M.D. Blood specimen (specimen) 01/18/2013 3:06 PM EDT 01/18/2013 4:15 PM EDT Narrative Resulting Agency Comment Spec In Lab Braxton Wei MD LAB SEND OUT ORDERAB LES [facility] * Somatomedin C (01/18/2013 3:06 PM EDT) SOMC 1 167 ng/mL [facility] Comment: Age ?Term Range ng/mL ? Range ng/mL ?15 to 109 ?21 to 93 2m ?15 to 109 ?23 to 163 4m ?7 to 124 ? 23 to 171 6m ?7 to 93 ?15 to 132 12m ?15 to 101 ?15 to 179 FEMALE: Age ? Range ng/mL 1 to 2y ?56 to 144 Age ?Rafael ? Range ng/mL 3y ? 1 ?26 to 162 4y ? 1 ?32 to 179 5y ? 1 ?39 to 198 6y ? 1 ?47 to 217 7y ? 1 ?55 to 238 8y ? 1 ?64 to 259 8y ? 2 ?89 to 369 9y ? 1 ?74 to 282 9y ? 2 ?96 to 399 9y ? 3 ?192 to 568 10y ?1 ?85 to 306 10y ?2 ?104 to 431 10y ?3 ?192 to 568 10y ?4&5 ?279 to 664 11y ?1 ?97 to 332 11y ?2 ?112 to 466 11y ?3 ?192 to 568 11y ?4&5 ?268 to 646 12y ?1 ?110 to 358 12y ?2 ?121 to 504 12y ?3 ?192 to 568 12y ?4&5 ?248 to 612 13y ?2 ?131 to 545 13y ?3 ?192 to 568 13y ?4&5 ?229 to 579 14y ?2 ?136 to 566 14y ?3 ?192 to 568 14y ?4&5 ?211 to 547 15y ?3 ?192 to 568 15y ?4&5 ?194 to 516 16y ?4&5 ?177 to 487 17y ?4&5 ?162 to 458 18y ?4&5 ?147 to 430 Adult Females: ?? Age ? Range ng/mL 19 to 20y ?217 to 475 21 to 30y ? 87 to 368 31 to 40y ?106 to 368 41 to 50y ?118 to 298 51 to 60y ? 53 to 287 61 to 70y ? 75 to 263 71 to 80y ? 54 to 205 MALE: Age ? Range ng/mL 1 to 2y ?30 to 122 Age ? Rafael ?Range ng/mL 3y ?1 ? 20 to 141 4y ?1 ? 25 to 157 5y ?1 ? 30 to 174 6y ?1 ? 37 to 192 7y ?1 ? 44 to 211 8y ?1 ? 52 to 231 8y ?2&3 ? 39 to 264 9y ?1 ? 61 to 252 9y ?2&3 ? 52 to 304 10y ? 1 ? 71 to 275 10y ? 2&3 ? 67 to 347 11y ? 1 ? 82 to 299 11y ? 2&3 ? 86 to 393 11y ? 4&5 ? 277 to 673 12y ? 1 ? 93 to 324 12y ? 2&3 ? 106 to 443 12y ? 4&5 ? 265 to 652 13y ? 1 ? 106 to 350 13y ? 2&3 ? 130 to 497 13y ? 4&5 ? 241 to 612 14y ? 1 ? 120 to 377 14y ? 2&3 ? 156 to 554 14y ? 4&5 ? 220 to 574 15y ? 1 ? 127 to 391 15y ? 2&3 ? 185 to 616 15y ? 4&5 ? 199 to 537 16y ? 2&3 ? 201 to 648 16y ? 4&5 ? 180 to 501 17y ? 4&5 ? 161 to 467 18y ? 4&5 ? 144 to 434 Adult Males: ?? Age ? Range ng/mL 19 to 20y ?281 to 510 21 to 30y ?155 to 432 31 to 40y ?132 to 333 41 to 50y ?121 to 237 51 to 60y ? 68 to 245 61 to 70y ? 60 to 220 71 to 80y ? 36 to 215 Test performed by [facility] [address] [place] [address], ??[place] [id number] Blood specimen (specimen) 01/18/2013 3:06 PM EDT 01/18/2013 4:25 PM EDT Narrative Resulting Agency Comment Spec In Lab Braxton Wei MD LAB SEND OUT ORDERAB LES Performing Organization Address City/[facility]/ZIP Co de Phone Number [facility] * IGF Binding Protein-3 (01/18/2013 3:06 PM EDT) Pathologist [facility] Insulin Like Growth Factor Binding Protein-3 3.2 2.1 - 6.2 mg/L [facility] Comment: Test performed by [facility] [address] [place] [address], ??[place] [id number] Blood specimen (specimen) 01/18/2013 3:06 PM EDT 01/18/2013 4:25 PM EDT Narrative Resulting Agency Comment Spec In Lab Braxton Wei MD LAB SEND OUT ORDERAB LES Performing Organization Address [facility] Co de Phone Number [facility] * Tissue transglutaminase, IgA (01/18/2013 3:06 PM EDT) TTG IgA Ab <4.0 <=3.9 u/ml [facility] Comment: Result Interpretation: Negative: ?<4 U/mL Weak Positive: ??4-10 U/mL Positive: ?>10 U/mL Blood specimen (specimen) 01/18/2013 3:06 PM EDT 01/19/2013 8:14 AM EDT Narrative Resulting Agency Comment Spec In Lab Braxton Wei MD IMMUNOLOGY ORDERABLE S [facility] * IgA (01/18/2013 3:06 PM EDT) IgA 73 58 - 358 mg/dL [facility] Blood specimen (specimen) 01/18/2013 3:06 PM EDT 01/18/2013 3:12 PM EDT Narrative Resulting Agency Comment Spec In Lab Braxton Wei MD CHEMISTRY ORDERABLES Performing Organization Address [facility]/ZIP Co de Phone Number [facility] * Sedimentation rate (01/18/2013 3:06 PM EDT) Sedimentation Rate Automated 3 0 - 20 mm/hr [facility] Blood specimen (specimen) 01/18/2013 3:06 PM EDT 01/18/2013 3:12 PM EDT Narrative Resulting Agency Comment Spec In Lab Braxton Wei MD HEMATOLOGY ORDERABLE S [facility] * CBC (with Diff) (01/18/2013 3:06 PM EDT) White Blood Cell 5.6 4.5 - 13.0 x10(3)/mcL [facility] Red Blood Cell 4.67 4.10 - 5.10 x10(6)/mcL [facility] Hemoglobin 13.7 12.0 - 16.0 gm/dL [facility] Hematocrit 38.5 36.0 - 46.0 % [facility] Mean Cell Volume 82.4 76.0 - 98.0 fL [facility] Mean Cell Hemoglobin 29.3 25.0 - 35.0 pg [facility] Mean Cell Hemoglobin Concentration 35.6 32.0 - 36.5 gm/dL [facility] Platelet 323 145 - 370 x10(3)/mcL [facility] RDW Standard Deviation 38.9 35.0 - 46.0 fL [facility] RDW coefficient of variation 13.0 10.9 - 14.4 % [facility] Mean Platelet Volume 10.2 9.0 - 12.0 fL [facility] Blood specimen (specimen) 01/18/2013 3:06 PM EDT 01/18/2013 3:12 PM EDT Narrative Resulting Agency Comment Spec In Lab Braxton Wei MD HEMATOLOGY ORDERABLE S [facility] * Comprehensive metabolic panel (non-fasting) (01/18/2013 3:06 PM EDT) [facility] Glucose 97 60 - 199 mg/dL [facility] Comment:Diabetes: >=200 mg/d L plus symptoms Blood Urea Nitrogen 13 5 - 20 mg/dL [facility] Creatinine 0.39 0.20 - 0.70 mg/dL [facility] Comment: Please note that the pediatric reference intervals supplied above were not validated at [facility]. Results from pediatric patients should be interpreted in conjunction to the patient's age, height and muscle mass. Sodium 140 135 - 145 mmol/L [facility] Potassium 3.8 3.5 - 5.0 mmol/L [facility] Comment: Please note: ??Patients with WBC >100,000 may have falsely elevated Potassium levels. ??For accurate Potassium quantification in these patients send serum separator tube (gold top) for subsequent determinations. ??Contact the Clinical Chemistry Laboratory if there are any questions. Chloride 103 98 - 107 mmol/L [facility] Carbon Dioxide 26 22 - 31 mmol/L [facility] Anion Gap 11 5 - 15 mmol/L [facility] Calcium 9.0 8.5 - 10.5 mg/dL [facility] Protein, Total 6.9 5.7 - 8.0 gm/dL [facility] Albumin 4.7 3.3 - 4.9 gm/dL [facility] Aspartate Aminotransferase 23 5 - 30 unit/L [facility] Alanine Aminotransferase 19 0 - 25 unit/L [facility] Alkaline Phosphatase 273 115 - 610 unit/L [facility] Bilirubin, Total 0.2 <=1.0 mg/dL [facility] Bilirubin, Direct 0.1 0.0 - 0.3 mg/dL [facility] Est Glomerular Filtration Rate See note >=60 [facility] Comment: Calculated GFR not appropriate for patients less than 18 years of age. The National Kidney Disease Education Program (NKDEP) has recommended all laboratories report estimated GFR (eGFR) along with plasma creatinine measurements to assist you with recognition of early kidney disease. Caveats: ??Plasma creatinine should be at steady-state (unchanged within the past week). For patients multiply eGFR by 1.2. The MDRD equation was developed using patients between the ages of 18 and 70 years. ?? The MDRD equation has not been validated for patients < 18 years of age and should not be used to assess renal function in the pediatric population. ??The MDRD eGFR equation will also overestimate the true GFR of patients above the age of 70. ??This overestimation is variable but increases with age. At present, NKDEP does NOT recommend using the MDRD equation for drug dosing purposes and pharmacists should continue to use their current dosing methods. In addition, numerical eGFR values greater than 60 ml/min/1.73 square meters should be treated as > 60, and not an exact number due to greater inaccuracies at these higher values. Per NKDEP, they classify normal renal function as any GFR >60ml/min/1.73 square meters; chronic kidney disease when GFR <60, and renal failure when GFR <15. ??This calculation may not be valid for patients with atypical muscle mass (very lean or obese), acute renal failure, and in patients with diabetic kidney disease. References: http://nkdep.nih.gov/resources/NKDEP_Suggestn4Labs_0606_508.pdf http://www.kidney.org/professionals/kls/pdf/faq_gfr.pdf Kristin K, Monty NA, Gilda AK, Marcelo TS, Britany AD, Chastity LEWIS. Relative performance of the MDRD and CKD-EPI equations for estimating glomerular filtration rate among patients with varied clinical presentations. Clin J Am Soc Nephrol;6:1963-72. Blood specimen (specimen) 01/18/2013 3:06 PM EDT 01/18/2013 3:12 PM EDT Narrative Resulting Agency Comment Spec In Lab Braxton Wei MD CHEMISTRY ORDERABLES [facility] documented in this encounter Visit Diagnoses Diagnosis Short stature- Primary Poor weight gain (0-17) Failure to thrive in childhood Pubertal delay Delay in sexual development and puberty, not elsewhere classified Anesthesia Disturbance of skin sensation documented in this encounter Administered Medications Inactive Administered Medications - up to 3 most recent administrations Medication Order MAR Action Action Date Dose Rate Site lidocaine-prilocaine (EMLA) cream Topical, ONCE, On 01/18/13 at 1530, 1 dose Given 01/18/2013 2:00 PM EDT each documented in this encounter Care Teams Sheet Taker Relationship Specialty Start Date End Date Nato Bonilla MD [address] [place] [address] PCP - General 06/19/11 04/02/21 documented as of this encounter
--- OUTSIDE RECORDS SUMMARY | 2024-09-24 09:22 | XMS_ITS | Encounter Summary ---
Author Organization [facility] Address [facility] [place] [address] Care Team Providers Care Certified Pathology Assistant Name Role Phone Nato Bonilla MD Primary Care Provider [phone] Encounter Details Date Type Department Care Team (Late st Contact Info) Description 12/14/2012 External Results XRay at [address] [place] [address] Provider, Scanning Social History Tobacco Use Types Packs/Day Years [...] Procedure Name Priority Date/Time Associated Diagnosis Comments DIAGNOSTIC RADIOLOGY SCAN Routine 12/09/2012 documented in this encounter Results * Scan Doc: Diagnostic Radiology (12/09/2012) Anatomical Region Laterality Modality Other Scanning Provider MEDIA MGR SCAN EXT O RDR/RSLT documented in this encounter Visit Diagnoses Not on filedocumented in this encounter Care Teams Certified Pathology Assistant Relationship Specialty Start Date End Date Nato Bonilla MD [address] [place] [address] [place] [address] PCP - General 06/19/11 04/02/21 documented as of this encounter
--- OUTSIDE RECORDS SUMMARY | 2024-09-24 09:23 | XMS_ITS | Encounter Summary ---
Author Organization [facility] Address [address] [place] [address] Care Team Providers Care Motor Builder Winder Name Role Phone Unavailable Primary Care Provider Unavailabl e Encounter Details Date Type Department Care Team (Late st Contact Info) Description 03/23/2020 Lab Requisition [facility] Pathology & Laboratory Medicine - [address] [address] Outr Resulting Lab, Provider Social History Tobacco Use Types Packs/Day Years Used Date Smoking Tobacco: Never Assessed Comments Unknown Sex and Gender Information Value Date Recorded Sex Assigned at Not on file Legal Sex Female 17:00 EDT Gender Identity Not on file Sexual Orientation Not on file documented as of this encounter Plan of Treatment Not on file documented as of this encounter Procedures Procedure Name Priority Date/Time Associated Diagnosis Comments HEPATITIS B SURFACE ANTIBODY Routine 03/23/2020 15:05 EDT documented in this encounter Results * HEPATITIS B SURFACE ANTIBODY (03/23/2020 15:05 EDT) Hep B Surface Ab, Quantitative 4.3 See Note mIU/mL 03/24/2020 9:12 EDT [facility] Comment: Reference Range for Hep B Surface Ab, Quant: Positive: >= 10.0 mIU/mL Negative: ??< 10.0 mIU/mL Patient is presumed to not be immune to infection with Hepatitis B Virus. Hep B Surface Ab, Qualitative Negative See Note 03/24/2020 9:12 EDT [facility] Comment: Reference Range for Hep B Surface Ab, Qual: Unvaccinated: ??Negative Vaccinated: ??Positive Blood VENOUS BLOOD / Unknown 03/23/2020 15:05 EDT 03/23/2020 21:12 EDT us Provider Outr Resulting Lab CHEMISTRY & BLOOD GA S ORDERABLES Final Result [facility] [address] [place] [address] documented in this encounter Visit Diagnoses Not on filedocumented in this encounter
--- OUTSIDE RECORDS SUMMARY | 2024-09-24 09:23 | XMS_ITS | Clinical Summary ---
Author Organization [facility] Address [address] [place] [address] Care Team Providers Care Liquor Establishment Manager Name Role Phone Unavailable Primary Care Provider Unavailabl e Social History Tobacco Use Types Packs/Day Years Used Date Smoking Tobacco: Never Assessed Interpersonal Safety Answer Date Record ed Physically Hurt Never 09/26/2020 Verbally Threaten Not on file 09/26/2020 Comments Unknown Sex and Gender Information Value Date Recorded Sex Assigned at Not on file Legal Sex Female 17:00 EDT Gender Identity Not on file Sexual Orientation Not on file Plan of Treatment Health Maintenance Due Date Last Done Comments Hepatitis C Screen 2000 Hepatitis B Vaccine (1 of 3 - 19+ 3-dose series) 04/12 COVID-19 Vaccine ( season) 2024
--- OUTSIDE RECORDS SUMMARY | 2024-09-24 09:23 | XMS_ITS | Encounter Summary ---
Author Organization [facility] Address [address] [place] [address] Care Team Providers Care Java Xml Developer Name Role Phone Unavailable Primary Care Provider Unavailabl e Encounter Details Date Type Department Care Team (Late st Contact Info) Description 05/28/2022 Lab Requisition [facility] Pathology & Laboratory Medicine - [address] [address] [address] [place] [phone] Encounter for other general examination Social History Tobacco Use Types Packs/Day Years [...] Procedure Name Priority Date/Time Associated Diagnosis Comments PAP TEST Today 05/23/2022 3:15 EDT Encounter for other general examination documented in this encounter Results * PAP TEST (05/23/2022 3:15 EDT) Specimens A. Cervix and/or Endocervix , ThinPrep Imaging System with Manual Evaluation 05/30/2022 13:32 EDT [facility] Specimen Adequacy Satisfactory for Evaluation - transformation zone component present 05/30/2022 13:32 EDT [facility] General Categorization Negative for intraepithelial lesion or malignancy 05/30/2022 13:32 EDT [facility] Attestation . 05/30/2022 13:32 EDT [facility] at 1332 Clinical History SEE BELOW 05/30/20 13:32 EDT [facility] Performing Lab [facility] 05/30/2022 13:32 EDT [facility] Scanned Images 05/30/2022 13:32 EDT [facility] Papanicolaou smear specimen (specimen) CERVIX UTERI STRUCTURE / Unknown 05/23/2022 3:15 EDT 05/28/2022 13:14 EDT us Aida Santana GRAVURE PRINTING MACHINIST PATHOLOGY ORDERABLES Final R esult [facility] [address] [place] [address] documented in this encounter Visit Diagnoses Diagnosis Encounter for other general examination documented in this encounter
--- OUTSIDE RECORDS SUMMARY | 2024-09-24 09:23 | XMS_ITS | Referral Summary ---
Author Organization [facility] Address [address] [place] [address] Care Team Providers Care Nutrient Management Specialist Name Role Phone Unavailable Primary Care Provider [...] Orientation Not on file Plan of Treatment Not on file
--- OUTSIDE RECORDS SUMMARY | 2024-09-24 09:23 | XMS_ITS | Encounter Summary ---
Author Organization [facility] Address [address] [place] [address] Care Team Providers Care Pool Lifeguard Name Role Phone Unavailable Primary Care Provider Unavailabl e Encounter Details Date Type Department Care Team (Late st Contact Info) Description 03/24/2020 Lab Requisition [facility] Pathology & Laboratory Medicine - [address] [id number] Outr Resulting Lab, Provider Social History Tobacco [...] Procedure Name Priority Date/Time Associated Diagnosis Comments QUANTIFERON TB GOLD PLUS Routine 03/23/2020 15:05 EDT documented in this encounter Results * QUANTIFERON TB GOLD PLUS (03/23/2020 15:05 EDT) Quantiferon Interpretation Negative Negative 03/27/2020 15:37 EDT [facility] Comment: No interferon-gamma response to M. tuberculosis antigens was detected. ??Infection with M. tuberculosis is unlikely. A single negative result does not exclude infection with M. tuberculosis. ??In patients at high risk for M. tuberculosis infection, a second test should be considered in accordance with the 2017 ATS/IDSA/CDC Clinical Practice Guidelines for Diagnosis of Tuberculosis in Adults and Children. [Garry AVERY et. al. Clin. Infect. Dis. 2017:64 (2) ??: 111-115]. Results were obtained with the Qiagen QuantiFERON TB Gold Plus CARLOS. TB1 Ag minus Nil 0.00 IU/ml 03/27/20 20 15:37 EDT [facility] TB2 Ag minus Nil 0.00 IU/mL 03/27/20 15:37 EDT [facility] Blood VENOUS BLOOD / Unknown 03/23/2020 15:05 EDT 03/24/2020 15:39 EDT Narrative [facility] - 03/27/2020 15:37 EDT Results were obtained with the Qiagen QuantiFERON-TB Gold Plus CARLOS. us Provider Outr Resulting Lab CHEMISTRY & BLOOD GA S ORDERABLES Final Result [facility] [address] [place] [address] documented in this encounter Visit Diagnoses Not on filedocumented in this encounter
--- OUTSIDE RECORDS SUMMARY | 2024-09-24 09:23 | XMS_ITS | Continuity of Care Document ---
Author Organization [facility] Address [address] [place] [id number] Care Team Providers Care Transcript Clerk Name Role Phone SHELBY PAYNE MD Primary Care Physician Encounter [facility] NBR [id number] Date(s): 08/06/24 - 08/06/[address] [id number] Discharge Disposition: Home or Self Care Attending Physician: WILVER GUPTA Admitting Physician: WILVER GUPTA Referring Physician: WILVER GUPTA Allergies, Adverse Reactions, Alerts No Known Allergies Immunizations Given and Recorded Vaccine Date Status Refusal Reason influenza virus vaccine, inactivated 1 08/27/23 Gi sarbjti 1Early/Late Reason: Early/Late Reason: Back-charting an earlier dose Results Radiology Reports * Exam Date Time Procedure Performing Provider Status 08/06/24 10:00 AM MRI Spine Cervical w /o Contrast DomainUser, Generated; Auth (Verified) Notes: (MRI Spine Cervical w/o Contrast) Reason For Exam: 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 COMPARISON: None FINDINGS: Inferior displacement of the cerebellar tonsils below the foramen magnum with mild deformity consistent with Chiari 1 malformation as described on same date MRI head examination. The cervical spinal cord is normal in morphology and signal intensity with no evidence of edema, myelomalacia or syrinx. Mild straightening of lateral cervical spine alignment which is likely positional C2-3: No focal disc protrusion, significant spinal stenosis or neural foraminal narrowing. C3-4: No focal disc protrusion, significant spinal stenosis or neural foraminal narrowing. C4-5: No focal disc protrusion, significant spinal stenosis or neural foraminal narrowing. C5-6: No focal disc protrusion, significant spinal stenosis or neural foraminal narrowing. C6-7: No focal disc protrusion, significant spinal stenosis or neural foraminal narrowing. C7-T1: No focal disc protrusion, significant spinal stenosis or neural foraminal narrowing. No significant stenosis in the visualized upper thoracic spine No suspicious regional marrow lesions. No vertebral body compression deformity in the cervical region Paraspinal soft tissues are unremarkable. IMPRESSION: Findings consistent with Chiari 1 malformation as described on same date MRI head examination Normal cervical spinal cord with no evidence of syrinx No focal disc protrusion or significant cervical stenosis. JOB #: [id number] Final Signed by: Gilberto Romeo MD Signed (Electronic Signature): 08/06/2024 10:21 am * Exam Date Time Procedure Performing Provider Status 08/06/24 10:00 AM MRI Brain w/o Contrast DomainUser, [employer] nerated; Auth (Verified) Notes: (MRI Brain w/o Contrast) Reason For Exam: ARNOLD CHIARI SYNDROME MRI Brain w/o Contrast EXAM DESCRIPTION: MRI Brain w/o Contrast 08/06/2024 INDICATION: ARNOLD CHIARI SYNDROME TECHNIQUE: Technique: Multiplanar MRI examination of the head including FLAIR and diffusion series. COMPARISON: CT head without contrast from 07/18/2024 FINDINGS: Inferior displacement of the cerebellar tonsils below the foramen magnum measuring up to 13 mm with mild deformity consistent with Chiari 1 malformation. No definite findings to suggest intracranial hypotension. No intracranial mass effect or midline shift Diffusion weighted images demonstrate no focal area of acute or recent infarct. No hydrocephalus, extra-axial fluid collection, focal white matter lesions or blood breakdown products. No significant temporal horn asymmetry Visualized vascular flow voids and cranial nerves appear within normal limits. The visualized paranasal sinuses are grossly clear. IMPRESSION: Findings consistent with Chiari 1 malformation. No intracranial mass effect or midline shift No acute or recent infarct on diffusion series. JOB #: [id number] Final Signed by: Gilberto Romeo MD Signed (Electronic Signature): 08/06/2024 10:17 am Social History Social History Type Response Tobacco Never tobacco user T obacco Use:. Sex Sex Representation Female (finding) Patient Care team information Care Team Personnel Name: SHELBY PAYNE MD Position: No Access Member Role: Primary Care Physician [address]: [address] [place] [address] Care Team Related Persons Name: JUSTIN BROOKS Insurance Providers Guarantor name: REX BROOKS Health Plan Information #: 1 Payer: [employer] Member Number: [id number] Policy Number: NA Health Plan Information #: 2 Payer: [employer] C[employer] Member Number: [id number] Policy Number: NA
--- OUTSIDE RECORDS SUMMARY | 2024-09-24 09:23 | XMS_ITS | Encounter Summary ---
Author Organization [facility] Address [address] [place] [address] Care Team Providers Care Dealer Account Manager Name Role Phone Unavailable Primary Care Provider Unavailabl e Encounter Details Date Type Department Care Team (Late st Contact Info) Description 06/04/2024 Lab Requisition [facility] Pathology & Laboratory Medicine - [facility] [address] [place] [address] Outr Resulting Lab, Provider Social History Tobacco [...] Procedure Name Priority Date/Time Associated Diagnosis Comments CHLAMYDIA/N. GONORRHOEAE AMPLIFIED NUCLEIC ACID Routine 06/04/2024 8:30 EDT documented in this encounter Results * CHLAMYDIA/N. GONORRHOEAE AMPLIFIED NUCLEIC ACID (06/04/2024 8:30 EDT) Neisseria gonorrhoeae Result Negative Negative 06/07/2024 12:03 EDT [facility] Chlamydia trachomatis Result Negative Negative 06/07/2024 12:03 EDT [facility] Urine URINE / Unknown 06/04/2024 8 :30 EDT 06/04/2024 18:24 EDT Narrative [facility] - 06/07/2024 12:03 EDT A first catch urine specimen is acceptable for detection of Gonorrhea and Chlamydia, but might detect up to 10% fewer infections when compared with vaginal swab samples. us Provider Outr Resulting Lab MICROBIOLOGY - GENER AL ORDERABLES Final Result [facility] [address] [place] [address] documented in this encounter Visit Diagnoses Not on filedocumented in this encounter
--- OUTSIDE RECORDS SUMMARY | 2024-09-24 09:23 | XMS_ITS | Encounter Summary ---
Author Organization [facility] Address [address] [place] [address] Care Team Providers Care Contracts Officer Name Role Phone Unavailable Primary Care Provider Unavailabl e Encounter Details Date Type Department Care Team (Late st Contact Info) Description 05/02/2021 Lab Requisition [facility] Pathology & Laboratory Medicine - [address] [address] [address] [place] [phone] Encounter for other general examination Social History [...] Date/Time Associated Diagnosis Comments PAP TEST Today 05/01/2021 15:00 EDT Encounter for other general examination documented in this encounter Results * PAP TEST (05/01/2021 15:00 EDT) Specimens A. Cervix and/or Endocervix , ThinPrep Imaging System with Manual Evaluation 05/10/2021 14:25 EDT [facility] Specimen Adequacy Satisfactory for Evaluation - transformation zone component present 05/10/2021 14:25 EDT [facility] General Categorization Negative for intraepithelial lesion or malignancy 05/10/2021 14:25 EDT [facility] Attestation . 05/10/2021 14:25 EDT [facility] at 1425 Clinical History See below 05/10/20 14:25 EDT [facility] Performing Lab [facility] 05/10/2021 14:25 EDT [facility] Scanned Images 05/10/2021 14:25 EDT [facility] Papanicolaou smear specimen (specimen) CERVIX UTERI STRUCTURE / Unknown 05/01/2021 15:00 EDT 05/02/2021 16:11 EDT us Aida Santana SUPERVISING BAILIFF PATHOLOGY ORDERABLES Final R esult [facility] [address] [place] [address] documented in this encounter Visit Diagnoses Diagnosis Encounter for other general examination documented in this encounter
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
[2024-09-24 15:22] LABS: Abs Immature Grans 0.02 10^3/uL (0.0-0.06); Absolute Basophil Count 0.08 10^3/uL (0.0-0.2); Absolute Lymphocyte Count 1.59 10^3/uL (1.2-3.4); Absolute Monocyte Count 0.57 10^3/uL (0.1-0.8); Absolute Neutrophil Count 3.83 10^3/uL (1.2-6.7); Basophils % 1.3 %; Eosinophils % 1.6 %; HCT 42.7 % (36.0-46.0); HGB 14.4 g/dL (11.2-15.7); Immature Grans % 0.3 %; Lymphocytes % 25.7 %; MCH 30.6 pg (27.0-33.0); MCHC 33.7 % (32.0-36.0); MCV 91 fL (80-95); MPV 11.1 fL (8.0-11.0); Monocytes % 9.2 %; Neutrophils % 61.9 %; Platelet Count 302 10^3/uL (130-400); RDW 12.4 % (11.7-14.6); WBC 6.19 10^3/uL (4.4-10.8)
[2024-09-24 15:59] LABS: ALT 18 U/L (14-59); AST 16 U/L (15-37); Albumin 4.6 g/dL (3.4-5.0); Alkaline Phosphatase 65 U/L (46-116); Anion Gap 8.2 mmol/L (3-11); BUN 12 mg/dL (7-18); CO2 28.8 mmol/L (21.0-32.0); CREATININE 0.7 mg/dL (0.55-1.02); Calcium 9.2 mg/dL (8.5-10.1); Calculated LDL 78 mg/dL (<100); Chloride 102 mmol/L (98-107); Cholesterol 184 mg/dL (<200); Estimated GFR 123.78 (mL/min/1.73m2); Glucose 92 mg/dL (74-106); HDL Cholesterol 100 mg/dL (40-60); Potassium 4.3 mmol/L (3.5-5.1); Sodium 139 mmol/L (136-145); TSH 1.41 uIU/mL (0.36-3.74); Total Protein 7.5 g/dL (6.4-8.2); Triglyceride 30 mg/dL (<150)
[2024-09-24 16:33] LABS: FREE T4 1.02 ng/dL (0.76-1.46)
== END 2024-09-24 09:22 | disposition home or self-care (01) ==
LOC: NCHCN 09:21
PROVIDERS: Visit Provider Family Medicine
DX: Z00.00 Encounter for general adult medical examination without abnormal findings (principal)
CPT/HCPCS: 80053; 80061; 84439; 84443; 85025

== ENCOUNTER 2025-07-01 14:17 | Outpatient (REF) | payer OTHER, SELFPAY ==
[2025-07-04 12:05] LABS: Chlamydia Result Negative (Negative); GC Result Negative (Negative)
== END 2025-07-01 14:18 | disposition home or self-care (01) ==
LOC: LBN 14:17
PROVIDERS: Visit Provider Obstetrics & Gynecology
DX: Z12.4 Encounter for screening for malignant neoplasm of cervix (principal)
CPT/HCPCS: 87491; 87591; 88142

== ENCOUNTER 2025-07-01 15:12 | Outpatient (CLI) | payer OTHER, SELFPAY ==
[2025-07-01 23:40] LABS: Hepatitis C Ab w Rflx HCV PCR Negative (Negative)
[2025-07-01 23:43] LABS: HIV-1/2 Ag & Ab Screen Negative (Negative)
[2025-07-04 11:11] LABS: Syphilis Serology (RPR) Negative (Negative)
== END 2025-07-01 15:13 | disposition home or self-care (01) ==
LOC: LBO 15:13
PROVIDERS: Visit Provider Obstetrics & Gynecology
DX: Z20.2 Contact with and (suspected) exposure to infections with a predominantly sexual mode of transmission (principal)
CPT/HCPCS: 36415; 86803; 87340; 87389; 86592